=== PATIENT | female | born 1995 | race Caucasian/White ===

== ENCOUNTER 2021-03-12 16:15 | Emergency (ER) | payer MEDICARE, SELFPAY | END 2021-03-12 19:47 | disposition left against medical advice (07) | PROVIDERS: Emergency Provider Emergency Medicine | DX: J02.9 Acute pharyngitis, unspecified (principal); R51.9 Headache, unspecified ==

== ENCOUNTER 2022-06-17 19:07 | Emergency (ER) | payer OTHER, SELFPAY ==
--- NOTE | ~2022-06-17 | US_ITS ---
EXAMINATION: US OBSTETRICAL ULTRASOUND CLINICAL INFORMATION: and vaginal bleed. COMPARISON: None available.. LMP: 04/16/2022. Gestational age by maternal dates is 7 weeks 3 days. Estimated date of delivery by maternal dates is 01/31/2023. TECHNIQUE: Transabdominal imaging of pelvis is performed. FINDINGS: There is a single intrauterine gestational sac with visible yolk sac, embryo/fetus, and cardiac activity. There is no significant subchorionic hemorrhage or hematoma. HR: 135 beats per minute. CRL (crown rump length): 0.99 cm (7 weeks 1 day +/- 4 days). HUSSAIN (estimated date of delivery): 01/31/2023 +/- 4 days. MATERNAL ADNEXA: The right maternal ovary measures 3.8 x 2.8 x 2.6 cm. There is anechoic simple cyst measuring 2.4 x 2.0 x 2.9 cm. The left maternal ovary measures 1.9 x 1.1 x 1.3 cm. No focal lesion seen. There is no significant maternal adnexal mass. No maternal pelvic ascites. US/US OB <= 14 weeks fetus IMPRESSION: 1. Single intrauterine gestation with ultrasound gestational age of 7 weeks and 1 day +/- 4 days. 2. Estimated date of delivery is 01/31/2023 +/- 4 days. 3. Simple cyst right ovary.
[2022-06-17 19:27] VITALS: BP 135/86; PULSE 79; RESP 18; TEMP 36.4; O2SAT 100; BMI 22.4
--- NOTE | 2022-06-17 19:27 | ED.PREGNANCY ---
HPI - General Chief complaint: Vaginal Bleeding <Ksenia Lucio NP - Last Filed: 06/24/22 11:09> Stated complaint: 7 weeks , bleeding <Ksenia Lucio NP - Last Filed: 06/24/22 11:09> Time Seen by Provider: 06/17/22 20:12 <Ksenia Lucio NP - Last Filed: 06/24/22 11:09> Source: patient <Lesa Serra MD - Last Filed: 06/17/22 22:00> Mode of arrival: ambulatory <Lesa Serra MD - Last Filed: 06/17/22 22:00> History of Present Illness HPI Narrative: 26-year-old female, , LMP-04/26 with positive home test. Her 1st ultrasound is scheduled for 07/08. Patient comes in with 2 days of intermittent brownish vaginal discharge and then states that when she sat down today she felt a gushing sensation and reports increase bloody discharge without clots and reports small amount of lower abdominal cramping. She denies any urinary burning/pain/frequency. <Lesa Serra MD - Last Filed: 06/17/22 22:00> Related Data Allergies/Adverse reactions: Allergies Allergy/AdvReac Type Severity Reaction Status Date / Time amoxicillin [AMOXICILLIN] Allergy Unknown UNKNOWN Verified 06/17/22 19:26 <Ksenia Lucio NP - Last Filed: 06/24/22 11:09> Review of Systems Review of Systems: Pertinent positives and negatives as stated in HPI <Lesa Serra MD - Last Filed: 06/17/22 22:00> PMFSH Past Medical History Source: nursing notes reviewed <Lesa Serra MD - Last Filed: 06/17/22 22:00> Social History Social History: Social History Advance Directives: No Advance Directives Information Provided: No <Ksenia Lucio NP - Last Filed: 06/24/22 11:09> Physical Exam Vital Signs: Vital Signs: Last Vital Signs Temp 97.6 F 06/17/22 19:27 Pulse 79 06/17/22 19:27 Resp 18 06/17/22 19:27 BP 135/86 06/17/22 19:27 Pulse Ox 100 06/17/22 19:27 O2 Del Method Room Air 06/17/22 19:27 BMI result Body Mass Index 22.4 <Ksenia Lucio NP - Last Filed: 06/24/22 11:09> Vital Signs: Last Vital Signs Temp 97.6 F 06/17/22 19:27 Pulse 79 06/17/22 19:27 Resp 18 06/17/22 19:27 BP 135/86 06/17/22 19:27 Pulse Ox 100 06/17/22 19:27 O2 Del Method Room Air 06/17/22 19:27 BMI result Body Mass Index 22.4 VITAL SIGNS: Reviewed. GENERAL: Well developed, well nourished, in no acute distress. HEAD: Normocephalic/atraumatic EYES: PERRLA, EOMI EARS: Ext canals without abnormality NOSE: Nares patent bilateral OROPHARYNX: no oral lesions noted, posterior pharynx clear NECK: Supple, no adenopathy LUNGS: Normal breath sounds. No adventitious sounds or accessory muscle use. SpO2<100> CARDIOVASCULAR: Regular rate and rhythm without noted murmurs ABDOMEN: Soft, non-tender, non-distended with bowel sounds. MUSCULOSKELETAL: No tenderness, deformities, or effusions noted on gross inspection. EXTREMITIES: No cyanosis, clubbing or edema. SKIN: Inspection of the skin reveals no rashes, NEUROLOGIC: Alert and oriented x 4. Strength and sensation to light touch were grossly intact x 4. <Lesa Serra MD - Last Filed: 06/17/22 22:00> Course Course Course Narrative: This is a rapid medical exam. Defer additional HPI, ROS, PE to primary provider. 26-year-old female with history of seizures not currently taking any antiepileptic presents to the ER with complaints of vaginal bleeding last 2-3 days. This has ranged from spotting to more heavier bleeding. Patient has some slight discomfort. Patient is currently 7 weeks . She is being followed by [facility]. Has not had an ultrasound to confirm IUP. She has one scheduled for Wednesday. MS1 <Ksenia Lucio NP - Last Filed: 06/24/22 11:09> Medical Decision Making Medical Decision Making MDM Narrative: 26-year-old female with history and clinical presentation will rule out ectopic, SAB, UTI. Review of all investigations and imaging studies demonstrates an IUP without UTI. Results were provided to the patient as well as return precautions. She was encouraged to follow-up with her associate theatre professor as scheduled. <Lesa Serra MD - Last Filed: 06/17/22 22:00> Differential Diagnosis Please see the discussion above <Lesa Serra MD - Last Filed: 06/17/22 22:00> Lab Data Please see the discussion above <Lesa Serra MD - Last Filed: 06/17/22 22:00> Result Diagrams: 06/17/22 19:46 06/17/22 19:46 <Ksenia Lucio NP - Last Filed: 06/24/22 11:09> Labs: Lab Results 06/17/22 06/17/22 06/17/22 Range/Units 19:46 19:46 19:46 WBC 8.2 (4.8-10.8) X10*3/uL RBC 4.19 L (4.20-5.50) X10*6/uL Hgb 11.5 L (12.0-16.0) g/dl Hct 35.0 L (37.0-47.0) % MCV 83.5 (80.0-98.0) fL MCH 27.4 (27.0-33.0) pg MCHC 32.9 (31.0-35.0) g/dl RDW 12.5 (11.0-16.0) % Plt Count 157 L (160-400) X10*3/uL MPV 11.9 (9.4-12.3) fL Immature Gran % (Auto) 0.4 (0.0-0.4) % Neut % (Auto) 69.5 (45-73) % Lymph % (Auto) 23.3 (20-40) % [place] % (Auto) 5.5 (2-11) % Eos % (Auto) 1.1 (0-4) % Baso % (Auto) 0.2 (0-2) % Lymph # (Auto) 1.9 (1.2-4.9) X10*3/uL [place] # (Auto) 0.5 (0.1-1.2) X10*3/uL Eos # (Auto) 0.1 (0.0-0.4) X10*3/uL Baso # (Auto) 0.0 (0.0-0.2) X10*3/uL Abs Immat Gran (auto) 0.03 (0.00-0.03) X10*3/uL Absolute Neuts (auto) 5.7 (2.0-8.3) x10*3/uL Absolute Nucleated RBC 0.000 (0.0-0.012) X10*3/uL Nucleated RBC % (auto) 0.0 (0.0-0.2) /100WBC Sodium 137 (135-145) mmol/L Potassium 3.7 (3.3-5.1) mmol/L Chloride 107 (96-108) mmol/L Carbon Dioxide 24 (22-29) mmol/L Anion Gap 10 L (12-20) BUN 10 (9-16) mg/dL Creatinine 0.77 (0.5-1.4) mg/dL Estim Creat Clear Calc 87.6 Estimated GFR > 60 Random Glucose 128 H (60-115) mg/dL Calcium 9.3 (8.4-10.2) mg/dL Total Bilirubin 0.3 (0.0-1.0) mg/dL Direct Bilirubin 0.1 (0.0-0.5) mg/dL AST 19 (5-31) U/L ALT 12 (0-31) U/L Alkaline Phosphatase 69 (39-117) U/L Total Protein 6.9 (6.5-8.0) g/dL Albumin 4.3 (3.5-5.0) g/dL Beta HCG, Quant 773492 mIU/mL Urine Color Urine Appearance Urine pH (5.0-9.0) Ur Specific [place] (1.005-1.025) Urine Protein (Neg-Trace) mg/dL Urine Glucose (UA) (Negative) mg/dL Urine Ketones (Negative) mg/dL Urine Blood (Negative) Urine Nitrite (Negative) Ur Leukocyte Esterase (Negative) Urine RBC (0-2) /HPF Urine WBC (0-5) /HPF Urine WBC Clumps Ur Squamous Epith Cells Urine Bacteria (None Seen) Hyaline Casts Urine Test (NEGATIVE) Blood Type O Positive 06/17/22 06/17/22 Range/Units 21:16 21:16 WBC (4.8-10.8) X10*3/uL RBC (4.20-5.50) X10*6/uL Hgb (12.0-16.0) g/dl Hct (37.0-47.0) % MCV (80.0-98.0) fL MCH (27.0-33.0) pg MCHC (31.0-35.0) g/dl RDW (11.0-16.0) % Plt Count (160-400) X10*3/uL MPV (9.4-12.3) fL Immature Gran % (Auto) (0.0-0.4) % Neut % (Auto) (45-73) % Lymph % (Auto) (20-40) % [place] % (Auto) (2-11) % Eos % (Auto) (0-4) % Baso % (Auto) (0-2) % Lymph # (Auto) (1.2-4.9) X10*3/uL [place] # (Auto) (0.1-1.2) X10*3/uL Eos # (Auto) (0.0-0.4) X10*3/uL Baso # (Auto) (0.0-0.2) X10*3/uL Abs Immat Gran (auto) (0.00-0.03) X10*3/uL Absolute Neuts (auto) (2.0-8.3) x10*3/uL Absolute Nucleated RBC (0.0-0.012) X10*3/uL Nucleated RBC % (auto) (0.0-0.2) /100WBC Sodium (135-145) mmol/L Potassium (3.3-5.1) mmol/L Chloride (96-108) mmol/L Carbon Dioxide (22-29) mmol/L Anion Gap (12-20) BUN (9-16) mg/dL Creatinine (0.5-1.4) mg/dL Estim Creat Clear Calc Estimated GFR Random Glucose (60-115) mg/dL Calcium (8.4-10.2) mg/dL Total Bilirubin (0.0-1.0) mg/dL Direct Bilirubin (0.0-0.5) mg/dL AST (5-31) U/L ALT (0-31) U/L Alkaline Phosphatase (39-117) U/L Total Protein (6.5-8.0) g/dL Albumin (3.5-5.0) g/dL Beta HCG, Quant mIU/mL Urine Color RED Urine Appearance Cloudy Urine pH 6.0 (5.0-9.0) Ur Specific [place] >= 1.030 H (1.005-1.025) Urine Protein 30 (1+) H (Neg-Trace) mg/dL Urine Glucose (UA) Negative (Negative) mg/dL Urine Ketones Negative (Negative) mg/dL Urine Blood Large (3+) H (Negative) Urine Nitrite Negative (Negative) Ur Leukocyte Esterase Negative (Negative) Urine RBC >20 H (0-2) /HPF Urine WBC 0-5 (0-5) /HPF Urine WBC Clumps None seen Ur Squamous Epith Cells Not Reportable Urine Bacteria None Seen (None Seen) Hyaline Casts Not Reportable Urine Test POSITIVE H (NEGATIVE) Blood Type <Ksenia Lucio NP - Last Filed: 06/24/22 11:09> Lab Results 06/17/22 06/17/22 06/17/22 Range/Units 19:46 19:46 19:46 WBC 8.2 (4.8-10.8) X10*3/uL RBC 4.19 L (4.20-5.50) X10*6/uL Hgb 11.5 L (12.0-16.0) g/dl Hct 35.0 L (37.0-47.0) % MCV 83.5 (80.0-98.0) fL MCH 27.4 (27.0-33.0) pg MCHC 32.9 (31.0-35.0) g/dl RDW 12.5 (11.0-16.0) % Plt Count 157 L (160-400) X10*3/uL MPV 11.9 (9.4-12.3) fL Immature Gran % (Auto) 0.4 (0.0-0.4) % Neut % (Auto) 69.5 (45-73) % Lymph % (Auto) 23.3 (20-40) % [place] % (Auto) 5.5 (2-11) % Eos % (Auto) 1.1 (0-4) % Baso % (Auto) 0.2 (0-2) % Lymph # (Auto) 1.9 (1.2-4.9) X10*3/uL [place] # (Auto) 0.5 (0.1-1.2) X10*3/uL Eos # (Auto) 0.1 (0.0-0.4) X10*3/uL Baso # (Auto) 0.0 (0.0-0.2) X10*3/uL Abs Immat Gran (auto) 0.03 (0.00-0.03) X10*3/uL Absolute Neuts (auto) 5.7 (2.0-8.3) x10*3/uL Absolute Nucleated RBC 0.000 (0.0-0.012) X10*3/uL Nucleated RBC % (auto) 0.0 (0.0-0.2) /100WBC Sodium 137 (135-145) mmol/L Potassium 3.7 (3.3-5.1) mmol/L Chloride 107 (96-108) mmol/L Carbon Dioxide 24 (22-29) mmol/L Anion Gap 10 L (12-20) BUN 10 (9-16) mg/dL Creatinine 0.77 (0.5-1.4) mg/dL Estim Creat Clear Calc 87.6 Estimated GFR > 60 Random Glucose 128 H (60-115) mg/dL Calcium 9.3 (8.4-10.2) mg/dL Total Bilirubin 0.3 (0.0-1.0) mg/dL Direct Bilirubin 0.1 (0.0-0.5) mg/dL AST 19 (5-31) U/L ALT 12 (0-31) U/L Alkaline Phosphatase 69 (39-117) U/L Total Protein 6.9 (6.5-8.0) g/dL Albumin 4.3 (3.5-5.0) g/dL Beta HCG, Quant 286113 mIU/mL Urine Color Urine Appearance Urine pH (5.0-9.0) Ur Specific [place] (1.005-1.025) Urine Protein (Neg-Trace) mg/dL Urine Glucose (UA) (Negative) mg/dL Urine Ketones (Negative) mg/dL Urine Blood (Negative) Urine Nitrite (Negative) Ur Leukocyte Esterase (Negative) Urine RBC (0-2) /HPF Urine WBC (0-5) /HPF Urine WBC Clumps Ur Squamous Epith Cells Urine Bacteria (None Seen) Hyaline Casts Urine Test (NEGATIVE) Blood Type O Positive 06/17/22 06/17/22 Range/Units 21:16 21:16 WBC (4.8-10.8) X10*3/uL RBC (4.20-5.50) X10*6/uL Hgb (12.0-16.0) g/dl Hct (37.0-47.0) % MCV (80.0-98.0) fL MCH (27.0-33.0) pg MCHC (31.0-35.0) g/dl RDW (11.0-16.0) % Plt Count (160-400) X10*3/uL MPV (9.4-12.3) fL Immature Gran % (Auto) (0.0-0.4) % Neut % (Auto) (45-73) % Lymph % (Auto) (20-40) % [place] % (Auto) (2-11) % Eos % (Auto) (0-4) % Baso % (Auto) (0-2) % Lymph # (Auto) (1.2-4.9) X10*3/uL [place] # (Auto) (0.1-1.2) X10*3/uL Eos # (Auto) (0.0-0.4) X10*3/uL Baso # (Auto) (0.0-0.2) X10*3/uL Abs Immat Gran (auto) (0.00-0.03) X10*3/uL Absolute Neuts (auto) (2.0-8.3) x10*3/uL Absolute Nucleated RBC (0.0-0.012) X10*3/uL Nucleated RBC % (auto) (0.0-0.2) /100WBC Sodium (135-145) mmol/L Potassium (3.3-5.1) mmol/L Chloride (96-108) mmol/L Carbon Dioxide (22-29) mmol/L Anion Gap (12-20) BUN (9-16) mg/dL Creatinine (0.5-1.4) mg/dL Estim Creat Clear Calc Estimated GFR Random Glucose (60-115) mg/dL Calcium (8.4-10.2) mg/dL Total Bilirubin (0.0-1.0) mg/dL Direct Bilirubin (0.0-0.5) mg/dL AST (5-31) U/L ALT (0-31) U/L Alkaline Phosphatase (39-117) U/L Total Protein (6.5-8.0) g/dL Albumin (3.5-5.0) g/dL Beta HCG, Quant mIU/mL Urine Color RED Urine Appearance Cloudy Urine pH 6.0 (5.0-9.0) Ur Specific [place] >= 1.030 H (1.005-1.025) Urine Protein 30 (1+) H (Neg-Trace) mg/dL Urine Glucose (UA) Negative (Negative) mg/dL Urine Ketones Negative (Negative) mg/dL Urine Blood Large (3+) H (Negative) Urine Nitrite Negative (Negative) Ur Leukocyte Esterase Negative (Negative) Urine RBC >20 H (0-2) /HPF Urine WBC 0-5 (0-5) /HPF Urine WBC Clumps None seen Ur Squamous Epith Cells Not Reportable Urine Bacteria None Seen (None Seen) Hyaline Casts Not Reportable Urine Test POSITIVE H (NEGATIVE) Blood Type <Lesa Serra MD - Last Filed: 06/17/22 22:00> Radiology Impression Radiologist Impression: My interpretation is in agreement with radiology's impression of the imaging studies. <Lesa Serra MD - Last Filed: 06/17/22 22:00> Discharge Plan Discharge Clinical Impression: Threatened , <Ksenia Lucio NP - Last Filed: 06/24/22 11:09> Patient Disposition: Home, Self-Care <Ksenia Lucio NP - Last Filed: 06/24/22 11:09> Instructions: Threatened Miscarriage (ED), (ED) <Ksenia Lucio NP - Last Filed: 06/24/22 11:09> Additional Instructions: 1. You should be taking daily vitamins and drinking plenty of water. You may take Tylenol for any discomfort. 2. Please keep your scheduled appointment with your associate theatre professor as well as your ultrasound appointment. 3. Do not hesitate to return to the emergency room should you begin passing clots, experiencing significant lower pelvic/abdominal pain were changing a pad every hour. <Ksenia Lucio NP - Last Filed: 06/24/22 11:09> Referrals: Gisela Angela PA [Primary Care Provider] - <Ksenia Lucio NP - Last Filed: 06/24/22 11:09> Interventions: ED Discharge Assessment Last Done: 06/17/22 22:19 <Ksenia Lucio NP - Last Filed: 06/24/22 11:09> Discharge Date/Time: 06/17/22 22:19 <Ksenia Lucio NP - Last Filed: 06/24/22 11:09>
[2022-06-17 19:53] LABS: MANUAL DIFF FLAG NO
[2022-06-17 19:56] LABS: Basophils Percent Auto 0.2 % (0-2); Eosinophils Absolute Auto 0.1 X10*3/uL (0.0-0.4); Eosinophils Percent Auto 1.1 % (0-4); Hemoglobin 11.5 g/dl (12.0-16.0); Imm Gran Abs Auto 0.03 X10*3/uL (0.00-0.03); Imm Gran Pct Auto 0.4 % (0.0-0.4); Lymphocytes Absolute Auto 1.9 X10*3/uL (1.2-4.9); Lymphocytes Percent Auto 23.3 % (20-40); Mean Corpuscular HGB Conc 32.9 g/dl (31.0-35.0); Mean Corpuscular Hemoglobin 27.4 pg (27.0-33.0); Mean Corpuscular Volume 83.5 fL (80.0-98.0); Mean Platelet Volume 11.9 fL (9.4-12.3); Monocytes Absolute Auto 0.5 X10*3/uL (0.1-1.2); Monocytes Percent Auto 5.5 % (2-11); Neutrophils Absolute Auto 5.7 x10*3/uL (2.0-8.3); Neutrophils Percent Auto 69.5 % (45-73); Platelet Count 157 X10*3/uL (160-400); Red Blood Count 4.19 X10*6/uL (4.20-5.50); Red Cell Distribution Width 12.5 % (11.0-16.0); White Blood Count 8.2 X10*3/uL (4.8-10.8)
[2022-06-17 20:17] LABS: Alanine Aminotransferase 12 U/L (0-31); Albumin Level 4.3 g/dL (3.5-5.0); Alkaline Phosphatase 69 U/L (39-117); Anion Gap 10 (12-20); Aspartate Amino Transferase 19 U/L (5-31); Bilirubin Direct 0.1 mg/dL (0.0-0.5); Bilirubin Total 0.3 mg/dL (0.0-1.0); Blood Urea Nitrogen 10 mg/dL (9-16); Calcium 9.3 mg/dL (8.4-10.2); Carbon Dioxide 24 mmol/L (22-29); Chloride 107 mmol/L (96-108); Creatinine Clr Calc Pharmacy 87.6; Estimated Glomerular Filt Rate > 60; Glucose Random 128 mg/dL (60-115); Potassium 3.7 mmol/L (3.3-5.1); Sodium 137 mmol/L (135-145); Total Protein 6.9 g/dL (6.5-8.0)
[2022-06-17 21:24] LABS: UPreg QC Valid YES; Urine Pregnancy POSITIVE (NEGATIVE)
[2022-06-17 21:26] LABS: Appearance Urine Cloudy; Color Urine RED; Glucose Urine UA Negative (Negative); Leukocyte Esterase Urine Negative (Negative); Nitrite Urine Negative (Negative); Specific Gravity - Urine >= 1.030 (1.005-1.025); UMIC TRIGGER UACC YES; Urine Blood Large (3+) (Negative); Urine Ketones Negative (Negative); Urine Protein 30 (1+) mg/dL (Neg-Trace)
[2022-06-17 21:38] LABS: RBC Urine >20 /HPF (0-2); WBC Clumps Urine None seen; WBC Urine 0-5 /HPF (0-5)
[2022-06-17 22:24] LABS: Bacteria Urine None Seen (None Seen)
== END 2022-06-17 22:19 | disposition home or self-care (01) ==
PROVIDERS: Nurse Practitioner Family; Emergency Provider Student in an Organized Health Care Education/Training Program; PCP Physician Assistant Medical
DX: O20.0 Threatened abortion (principal); Z3A.01 Less than 8 weeks gestation of pregnancy; N83.201 Unspecified ovarian cyst, right side
CPT/HCPCS: 36415; 76801; 80048; 80076; 81001; 81025; 84702; 85025; 86900; 86901; 99282; 99284